=== PATIENT | male | born 1995 | race Caucasian/White ===

== ENCOUNTER 2016-04-30 08:45 | Emergency (ER) | payer OTHER ==
--- NOTE | 2016-04-30 10:09 | REP ---
Left ankle series: Four views. History: Trauma. Findings: Four views of the left ankle demonstrate mild diffuse swelling. There is a small ossific density adjacent to the lateral malleolar tip. However, this appears rounded and may be old. There does appear to be a cortical disruption at the posterior tibial malleolus consistent with an acute distal tibial fracture. No medial malleolar fracture is seen. Ankle mortise is intact. Impression: Diffuse swelling. Interarticular fracture of the posterior tibial malleolus, nondisplaced. Two rounded old appearing accessory ossicles adjacent to the fibular tip. Signed by Salbador Jacobsen MD 04/30/2016 10:25 A
--- NOTE | 2016-04-30 10:39 | EDDOCDS ---
Nurse's Notes [facility] Name: Francisco Connors Age: 20 yrs Sex: Male : 1995 Arrival Date: 04/30/2016 Time: 08:45 Bed I6 / Private MD: Diagnosis: Nondisplaced fracture of medial malleolus of left tibia-intraarticular, posterior Presentation: 04/30 09:00 Presenting complaint: Patient states: I was rucking and there was ice and my ankle hs1 rolled underneath me. Pt was sent here by medic. The patients lower extremity has obvious swelling present on examination. Adult Sepsis Screening: The patient does not have new or worsening altered mentation. Patient's respiratory rate is less than 22. Systolic blood pressure is greater than 100. Patient has a qSOFA score of 0- Negative Sepsis Screen. Suicide/Homicide risk assessment- the patient denies having any suicidal and/or homicidal ideations and does not present with any other emotional, behavioral or mental health complaints. 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 Transition of care: patient was not received from another setting of care. 09:00 Acuity: MARY Level 4 hs1 09:00 Method Of Arrival: Walkin/Carried/Asstd hs1 Triage Assessment: 09:02 General: Appears in no apparent distress, Behavior is appropriate for age, cooperative. hs1 Pain: Location: left ankle Pain currently is 6 out of 10 on a pain scale. HIV screening NA for this visit Offered previously. Musculoskeletal: Capillary refill is brisk No deformity noted Swelling present in left ankle Reports pain in left ankle. Historical: - Allergies: no known allergies; - Home Meds: 1. none - PMHx: none; - PSHx: none; - Social history: Smoking status: Patient states was never smoker of tobacco. No barriers to communication noted, The patient speaks fluent Setswana, Speaks appropriately for age. - Family history: Not pertinent. - : The pt / caregiver states he / she is not on anticoagulants. Home medication list is obtained from the patient. - Exposure Risk Screening:: None identified. Screenin:20 Screening information is obtained from the patient. Fall risk: No risks identified. mk4 Assistance ADL's: requires no assistance with activities of daily living. Abuse/DV Screen: The patient / caregiver reports he/she is: not in a situation that causes fear, pain or injury. Nutritional screening: No deficits noted. Advance Directives: Currently, there is no health care proxy. There is no active DNR order. There is no living will. There is no Power of Internet Marketing Coordinator. Advance directive information has not previously been placed in an [facility] medical record. Further advance directive information is declined. home support is adequate. Assessment: 09:20 General: Appears in no apparent distress. Musculoskeletal: Circulation, motion, and mk4 sensation intact Capillary refill < 3 seconds in left toes. 10:35 General: Appears in no apparent distress, comfortable. Musculoskeletal: Circulation, mk4 motion, and sensation intact Capillary refill < 3 seconds in left toes Signs and Symptoms of Compartment Syndrome: no signs of compartment syndrome. Vital Signs: 09:04 BP 165 / 71; Pulse 93; Resp 18; Temp 97.1(T); Pulse Ox 97% ; Weight 81.65 kg; Height 5 hs1 ft. 7 in. (170.18 cm); Pain 6/10; 10:29 BP 156 / 68; Pulse 97; Resp 18; Temp 97.5; Pulse Ox 100% ; Pain 0/10; jlf 09:04 Body Mass Index 28.19 (81.65 kg, 170.18 cm) hs1 Vitals: 09:04 Log In Time: April 30, 2016 at 08:41. hs1 ED Course: 08:46 Patient visited by Leroy Bearden Reg. lg 08:46 Patient moved to Waiting lg 09:01 Triage Initiated hs1 09:04 Patient moved to Triage 3 hs1 09:05 Chadwick Mobley PA is PHCP. btw 09:05 Norma Jj MD is Attending Physician. btw 09:05 Patient visited by Chadwick Mobley PA. btw 09:06 Patient moved to PD btw 09:20 The patient / caregiver is instructed regarding the plan of care and ED course. mk4 09:20 No IV's were initiated during this patient's visit. No procedures done that require mk4 assistance. Posterior lower leg splint applied on left leg. Patient with positive distal sensation and brisk distal capillary refill after application. 09:22 Patient name changed from Francisco\S\Nando\S\Waylon\S\ to Francisco\S\ \S\[place]. EDMS 09:23 COUNT INCLUDES THE [facility] Payment Agreement was scanned into Inbound[employer] and attached to record. lg 09:26 Patient moved to btw 09:42 Patient visited by Nadya Lema RN. mk4 10:22 Evelia Ribera is Referral Physician. btw 10:26 Patient visited by Rafaela Seth PCA. jlf 10:26 Patient visited by Rafaela Seth PCA. jlf 10:26 Crutch training done. jlf 10:29 Patient visited by Rafaela Seth PCA. jlf 10:33 Ankle, Complete Returned. EDMS 10:38 Patient visited by Nadya Lema RN. mk4 Order Results: Radiology Order: Ankle, Complete Test: Ankle, Complete REASON FOR EXAMINATION: Trauma; Left ankle series: Four views.; ; History: Trauma.; ; Findings: Four views of the left ankle demonstrate mild diffuse swelling. There; is a small ossific density adjacent to the lateral malleolar tip. However, this; appears rounded and may be old. There does appear to be a cortical disruption at; the posterior tibial malleolus consistent with an acute distal tibial fracture.; No medial malleolar fracture is seen. Ankle mortise is intact.; ; Impression:; ; Diffuse swelling. Interarticular fracture of the posterior tibial malleolus,; nondisplaced. Two rounded old appearing accessory ossicles adjacent to the; fibular tip.; ; ; ; Unreviewed; Outcome: 09:20 Discharge Assessment: Patient awake, alert and oriented x 3. No cognitive and/or mk4 functional deficits noted. Patient verbalized understanding of disposition instructions. Patient awake and alert. patient administered narcotics - no. The following High Risk Discharge criteria are identified: None. Discharged to home ambulatory. Condition: good Condition: stable. No special radiology studies were completed. Property sent home with patient. 10:24 Discharge ordered by Provider. btw 10:39 Patient left the ED. mk4 Signatures: Dispatcher MedHost EDKY Leroy Bearden, Blake Reg lg Chadwick Mobley PA PA btw Vandana Marie RN RN hs1 Nadya Lema RN RN mk4 Rafaela Seth PCA PCA [facility] MTDD
--- NOTE | 2016-04-30 10:39 | EDDOCDS ---
Physician Documentation [facility] Name: Francisco Connors Age: 20 yrs Sex: Male : 1995 Arrival Date: 04/30/2016 Time: 08:45 Bed I6 / Private MD: Disposition: 04/30/16 10:24 Discharged to Home/Self Care. Impression: Nondisplaced fracture of medial malleolus of left tibia - intraarticular, posterior. - Condition is Stable. - Discharge Instructions: Crutch Use, [id number], Ankle Fracture, [id number]. - Medication Reconciliation, Local Pharmacy Hours form. - Follow up: Syl Moran, Ortho; When: Tomorrow; Reason: Further diagnostic work-up, Recheck today's complaints, Continuance of care. - Problem is new. - Symptoms are unchanged. Historical: - Allergies: no known allergies; - Home Meds: 1. none - PMHx: none; - PSHx: none; - Social history: Smoking status: Patient states was never smoker of tobacco. No barriers to communication noted, The patient speaks fluent Stateless, Speaks appropriately for age. - Family history: Not pertinent. - : The pt / caregiver states he / she is not on anticoagulants. Home medication list is obtained from the patient. - Exposure Risk Screening:: None identified. Vital Signs: 04/30 09:04 BP 165 / 71; Pulse 93; Resp 18; Temp 97.1(T); Pulse Ox 97% ; Weight 81.65 kg / 180.01 hs1 lbs; Height 5 ft. 7 in. (170.18 cm); Pain 6/10; 10:29 BP 156 / 68; Pulse 97; Resp 18; Temp 97.5; Pulse Ox 100% ; Pain 0/10; jlf 09:04 Body Mass Index 28.19 (81.65 kg, 170.18 cm) hs1 Procedures: 10:22 Fracture care/splinting: (Stabilizing Care) Splint applied to lateral aspect of left btw calf, left lateral ankle, lateral aspect of left foot, left calf, left Achilles, left heel, medial aspect of left calf, left medial ankle and medial aspect of left foot using Scotchcast posterior and stirrup splint. applied by myself. Examined by me, post splint application: neurovascular intact, 2+ distal pulses palpable, brisk capillary refill noted, Patient tolerated well. MDM: 09:06 Ankle, Complete Ordered. EDMS 09:18 Financial registration complete. lg 09:23 [facility] Payment Agreement was scanned into [email or web address] and attached to record. lg 10:24 Crutches ordered. btw Signatures: Dispatcher MedHost EDMS Leroy Bearden, Reg Reg lg Chadwick Mobley PA PA btw Vandana Marie RN RN hs1 Nadya Lema RN RN mk4 The chart was reviewed and I authenticate all verbal orders and agree with the evaluation and treatment provided.Attachments: 09:23 [facility] Payment Agreement lg MTDD
--- NOTE | 2016-05-02 11:39 | EDDOCDS ---
Physician Documentation [facility] Name: Francisco Connors Age: 20 yrs Sex: Male : 1995 Arrival Date: 04/30/2016 Time: 08:45 Bed I6 / Private MD: Disposition: 04/30/16 10:24 Discharged to Home/Self Care. Impression: Nondisplaced fracture of medial malleolus of left tibia - intraarticular, posterior. - Condition is Stable. - Discharge Instructions: Crutch Use, Cxhc-xn-Rlie, Ankle Fracture, [id number]-sa-[id number]. - Medication Reconciliation, Local Pharmacy Hours form. - Follow up: Syl Moran, Ortho; When: Tomorrow; Reason: Further diagnostic work-up, Recheck today's complaints, Continuance of care. - Problem is new. - Symptoms are unchanged. Historical: - Allergies: no known allergies; - Home Meds: 1. none - PMHx: none; - PSHx: none; - Social history: Smoking status: Patient states was never smoker of tobacco. No barriers to communication noted, The patient speaks fluent Cuban, Speaks appropriately for age. - Family history: Not pertinent. - : The pt / caregiver states he / she is not on anticoagulants. Home medication list is obtained from the patient. - Exposure Risk Screening:: None identified. Vital Signs: 04/30 09:04 BP 165 / 71; Pulse 93; Resp 18; Temp 97.1(T); Pulse Ox 97% ; Weight 81.65 kg / 180.01 hs1 lbs; Height 5 ft. 7 in. (170.18 cm); Pain 6/10; 10:29 BP 156 / 68; Pulse 97; Resp 18; Temp 97.5; Pulse Ox 100% ; Pain 0/10; jlf 09:04 Body Mass Index 28.19 (81.65 kg, 170.18 cm) hs1 Procedures: 10:22 Fracture care/splinting: (Stabilizing Care) Splint applied to lateral aspect of left btw calf, left lateral ankle, lateral aspect of left foot, left calf, left Achilles, left heel, medial aspect of left calf, left medial ankle and medial aspect of left foot using Scotchcast posterior and stirrup splint. applied by myself. Examined by me, post splint application: neurovascular intact, 2+ distal pulses palpable, brisk capillary refill noted, Patient tolerated well. MDM: 09:06 Ankle, Complete Ordered. EDMS 09:18 Financial registration complete. lg 09:23 [facility] Payment Agreement was scanned into [employer] and attached to record. lg 10:24 Crutches ordered. btw 13:29 T-Sheet-- Draft Copy was scanned into Cozi and attached to record. gb Signatures: Dispatcher MedHost EDMS Aggie Gentile, Reg Reg gb Leroy Bearden, Reg Reg lg Chadwick Mobley, MARIAMA PA btw Vandana Marie RN RN hs1 Nadya Lema RN RN mk4 The chart was reviewed and I authenticate all verbal orders and agree with the evaluation and treatment provided.Attachments: 09:23 [facility] Payment Agreement lg 13:29 T-Sheet-- Draft Copy gb Chart Complete MTDD
--- NOTE | 2016-05-02 11:39 | EDDOCDS ---
Physician Documentation [facility] Name: Francisco Connors Age: 20 yrs Sex: Male : 1995 Arrival Date: 04/30/2016 Time: 08:45 Bed I6 / Private MD: Disposition: 04/30/16 10:24 Discharged to Home/Self Care. Impression: Nondisplaced fracture of medial malleolus of left tibia - intraarticular, posterior. - Condition is Stable. - Discharge Instructions: Crutch Use, Knqm-kp-Xjav, Ankle Fracture, Dqyc-bh-Djzd. - Medication Reconciliation, Local Pharmacy Hours form. - Follow up: Syl Moran, Ortho; When: Tomorrow; Reason: Further diagnostic work-up, Recheck today's complaints, Continuance of care. - Problem is new. - Symptoms are unchanged. Historical: - Allergies: no known allergies; - Home Meds: 1. none - PMHx: none; - PSHx: none; - Social history: Smoking status: Patient states was never smoker of tobacco. No barriers to communication noted, The patient speaks fluent Croatian, Speaks appropriately for age. - Family history: Not pertinent. - : The pt / caregiver states he / she is not on anticoagulants. Home medication list is obtained from the patient. - Exposure Risk Screening:: None identified. Vital Signs: 04/30 09:04 BP 165 / 71; Pulse 93; Resp 18; Temp 97.1(T); Pulse Ox 97% ; Weight 81.65 kg / 180.01 hs1 lbs; Height 5 ft. 7 in. (170.18 cm); Pain 6/10; 10:29 BP 156 / 68; Pulse 97; Resp 18; Temp 97.5; Pulse Ox 100% ; Pain 0/10; jlf 09:04 Body Mass Index 28.19 (81.65 kg, 170.18 cm) hs1 Procedures: 10:22 Fracture care/splinting: (Stabilizing Care) Splint applied to lateral aspect of left btw calf, left lateral ankle, lateral aspect of left foot, left calf, left Achilles, left heel, medial aspect of left calf, left medial ankle and medial aspect of left foot using Scotchcast posterior and stirrup splint. applied by myself. Examined by me, post splint application: neurovascular intact, 2+ distal pulses palpable, brisk capillary refill noted, Patient tolerated well. MDM: 09:06 Ankle, Complete Ordered. EDMS 09:18 Financial registration complete. lg 09:23 [facility] Payment Agreement was scanned into [employer] and attached to record. lg 10:24 Crutches ordered. btw 13:29 T-Sheet-- Draft Copy was scanned into [employer] and attached to record. gb Signatures: Dispatcher MedHost EDMS Aggie Gentile, Reg Reg gb Leroy Bearden, Reg Reg lg Chadwick Mobley, MARIAMA PA btw Vandana Marie RN RN hs1 Nadya Lema RN RN mk4 The chart was reviewed and I authenticate all verbal orders and agree with the evaluation and treatment provided.Attachments: 09:23 [facility] Payment Agreement lg 13:29 T-Sheet-- Draft Copy gb Chart Complete MTDD
--- NOTE | 2016-05-02 11:39 | EDDOCDS ---
Nurse's Notes [facility] Name: Francisco Connors Age: 20 yrs Sex: Male : 1995 Arrival Date: 04/30/2016 Time: 08:45 Bed I6 / Private MD: Diagnosis: Nondisplaced fracture of medial malleolus of left tibia-intraarticular, posterior Presentation: 04/30 09:00 Presenting complaint: Patient states: I was rucking and there was ice and my ankle hs1 rolled underneath me. Pt was sent here by medic. The patients lower extremity has obvious swelling present on examination. Adult Sepsis Screening: The patient does not have new or worsening altered mentation. Patient's respiratory rate is less than 22. Systolic blood pressure is greater than 100. Patient has a qSOFA score of 0- Negative Sepsis Screen. Suicide/Homicide risk assessment- the patient denies having any suicidal and/or homicidal ideations and does not present with any other emotional, behavioral or mental health complaints. 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 Transition of care: patient was not received from another setting of care. 09:00 Acuity: MARY Level 4 hs1 09:00 Method Of Arrival: Walkin/Carried/Asstd hs1 Triage Assessment: 09:02 General: Appears in no apparent distress, Behavior is appropriate for age, cooperative. hs1 Pain: Location: left ankle Pain currently is 6 out of 10 on a pain scale. HIV screening NA for this visit Offered previously. Musculoskeletal: Capillary refill is brisk No deformity noted Swelling present in left ankle Reports pain in left ankle. Historical: - Allergies: no known allergies; - Home Meds: 1. none - PMHx: none; - PSHx: none; - Social history: Smoking status: Patient states was never smoker of tobacco. No barriers to communication noted, The patient speaks fluent German, Speaks appropriately for age. - Family history: Not pertinent. - : The pt / caregiver states he / she is not on anticoagulants. Home medication list is obtained from the patient. - Exposure Risk Screening:: None identified. Screenin:20 Screening information is obtained from the patient. Fall risk: No risks identified. mk4 Assistance ADL's: requires no assistance with activities of daily living. Abuse/DV Screen: The patient / caregiver reports he/she is: not in a situation that causes fear, pain or injury. Nutritional screening: No deficits noted. Advance Directives: Currently, there is no health care proxy. There is no active DNR order. There is no living will. There is no Power of Cloth Reeler. Advance directive information has not previously been placed in an [facility] medical record. Further advance directive information is declined. home support is adequate. Assessment: 09:20 General: Appears in no apparent distress. Musculoskeletal: Circulation, motion, and mk4 sensation intact Capillary refill < 3 seconds in left toes. 10:35 General: Appears in no apparent distress, comfortable. Musculoskeletal: Circulation, mk4 motion, and sensation intact Capillary refill < 3 seconds in left toes Signs and Symptoms of Compartment Syndrome: no signs of compartment syndrome. Vital Signs: 09:04 BP 165 / 71; Pulse 93; Resp 18; Temp 97.1(T); Pulse Ox 97% ; Weight 81.65 kg; Height 5 hs1 ft. 7 in. (170.18 cm); Pain 6/10; 10:29 BP 156 / 68; Pulse 97; Resp 18; Temp 97.5; Pulse Ox 100% ; Pain 0/10; jlf 09:04 Body Mass Index 28.19 (81.65 kg, 170.18 cm) hs1 Vitals: 09:04 Log In Time: April 30, 2016 at 08:41. hs1 ED Course: 08:46 Patient visited by Leroy Bearden Reg. lg 08:46 Patient moved to Waiting lg 09:01 Triage Initiated hs1 09:04 Patient moved to Triage 3 hs1 09:05 Chadwick Mobley PA is PHCP. btw 09:05 Norma Jj MD is Attending Physician. btw 09:05 Patient visited by Chadwick Mobley PA. btw 09:06 Patient moved to PD btw 09:20 The patient / caregiver is instructed regarding the plan of care and ED course. mk4 09:20 No IV's were initiated during this patient's visit. No procedures done that require mk4 assistance. Posterior lower leg splint applied on left leg. Patient with positive distal sensation and brisk distal capillary refill after application. 09:22 Patient name changed from Francisco\S\Nando\S\[place]\S\ to Francisco\S\ \S\[place]. EDMS 09:23 [facility]END[facility] S[facility] TO [facility] Payment Agreement was scanned into [email or web address] and attached to record. lg 09:26 Patient moved to btw 09:42 Patient visited by Nadya Lema RN. mk4 10:22 Evelia Ribera is Referral Physician. btw 10:26 Patient visited by Rafaela Seth PCA. jlf 10:26 Patient visited by Rafaela Seth PCA. jlf 10:26 Crutch training done. jlf 10:29 Patient visited by Rafaela Seth PCA. jlf 10:33 Ankle, Complete Returned. EDMS 10:38 Patient visited by Nadya Lema RN. mk4 13:29 T-Sheet-- Draft Copy was scanned into [email or web address] and attached to record. gb Order Results: Radiology Order: Ankle, Complete Test: Ankle, Complete REASON FOR EXAMINATION: Trauma; Left ankle series: Four views.; ; History: Trauma.; ; Findings: Four views of the left ankle demonstrate mild diffuse swelling. There; is a small ossific density adjacent to the lateral malleolar tip. However, this; appears rounded and may be old. There does appear to be a cortical disruption at; the posterior tibial malleolus consistent with an acute distal tibial fracture.; No medial malleolar fracture is seen. Ankle mortise is intact.; ; Impression:; ; Diffuse swelling. Interarticular fracture of the posterior tibial malleolus,; nondisplaced. Two rounded old appearing accessory ossicles adjacent to the; fibular tip.; ; ; Signed by; Salbador Jacobsen MD 04/30/2016 10:25 A; Outcome: 09:20 Discharge Assessment: Patient awake, alert and oriented x 3. No cognitive and/or mk4 functional deficits noted. Patient verbalized understanding of disposition instructions. Patient awake and alert. patient administered narcotics - no. The following High Risk Discharge criteria are identified: None. Discharged to home ambulatory. Condition: good Condition: stable. No special radiology studies were completed. Property sent home with patient. 10:24 Discharge ordered by Provider. btw 10:39 Patient left the ED. mk4 Signatures: Dispatcher MedHost EDMS Aggie Gentile, Reg Reg gb Leroy Bearden, Reg Reg lg Chadwick Mobley PA PA btw Vandana Marie, RN RN hs1 Nadya Lema, RN RN mk4 Rafaela Seth, PLANT SCIENTIST PLANT SCIENTIST jlf Chart Complete MTDD
== END 2016-04-30 10:39 | disposition home or self-care (01) ==
LOC: M ED 08:45
DX: S82.55XA Nondisplaced fracture of medial malleolus of left tibia, initial encounter for closed fracture (principal); W00.0XXA Fall on same level due to ice and snow, initial encounter; Y92.89 Other specified places as the place of occurrence of the external cause; Y93.01 Activity, walking, marching and hiking; Y99.1 Military activity